=== PATIENT | male | born 1990 | race Caucasian/White ===

== ENCOUNTER 2025-03-15 18:43 | Emergency (ER) | payer OTHER ==
[2025-03-15] MEDS ORDERED: Lidocaine 1% 10 ML MDV ONE (19:50)
== END 2025-03-15 21:01 | disposition home or self-care (01) ==
LOC: JD.ED 18:43
DX: S61.411A Laceration without foreign body of right hand, initial encounter (principal); W26.8XXA Contact with other sharp object(s), not elsewhere classified, initial encounter; Y93.89 Activity, other specified; Y99.0 Civilian activity done for income or pay
CPT/HCPCS: 12001; 73130-26-RT; 73130-RT; 99282; 99283